=== PATIENT | female | born 1960 | race African-American/Black ===

== ENCOUNTER 2018-06-28 09:45 | Emergency (ER) | payer OTHER ==
--- NOTE | 2018-06-28 11:45 | RAD REPORT ---
EXAM DESCRIPTION: RAD - Chest Single View - 06/28/2018 11:18 am CLINICAL HISTORY: Persistent cough, chest wall pain, shortness of breath COMPARISON: April 2015 TECHNIQUE: AP portable chest image was obtained 1115 hours . FINDINGS: Lungs are clear. Heart and vasculature are normal. No measurable pleural effusion and no p neumothorax. No gross bony abnormality seen. No acute aortic findings suspected. IMPRESSION: No acute cardiopulmonary process. No significant change from comparison.
[2018-06-28 12:08] LABS: Absolute Lymphocytes (CBC) 1.5 K/uL (0.7-4.9); Absolute Monocytes 0.5 K/uL (0.1-1.3); Absolute Neutrophil 1.4 K/uL (1.8-8.0); Basophils % 0.7 % (0-1.3); Eosinophils % 0.8 % (0-4.4); Hematocrit 40.3 % (36.0-45.0); Lymphocytes % 42.5 % (15.3-44.8); MCH 36.4 pg (27.0-35.0); MCV 104.2 fL (80-100); MPV 8.2 fL (7.6-11.3); Monocytes % 14.9 % (3.3-12.3); RBC Red Blood Cell Count 3.86 M/uL (3.86-4.86)
[2018-06-28] MEDS ORDERED: ALBUTEROL 2.5 MG/3 ML NEB SOL ONE (12:19)
[2018-06-28] MEDS ORDERED: IPRATROPIUM BROM 0.5MG/2.5ML ONE (12:19)
[2018-06-28 12:34] LABS: Protime INR 1.03
[2018-06-28 13:30] LABS: BUN Blood Urea Nitrogen 6 mg/dL (7-18); Bicarbonate 31 mmol/L (21-32); CKMB Creatine Kinase MB < 1.0 ng/mL (0.3-3.6); Glucose Level 107 mg/dL (74-106); HDL Cholesterol 115 mg/dL (40-60); LDL Cholesterol, Calculated 23 (<130); NT PRO-BNP 95 pg/mL (<125); Potassium 4.2 mmol/L (3.5-5.1); Sodium Level 144 mmol/L (136-145); Troponin I < 0.02 ng/mL (0.0-0.045)
--- NOTE | 2018-06-28 13:37 | ER ---
Nurse's Notes [facility] Name: Cadence Bailey Age: 57 yrs Sex: Female : 1960 Arrival Date: 06/28/2018 Time: 10:30 Bed 14 Private MD: None, None Diagnosis: Acute bronchitis Presentation: 06/28 10:33 Presenting complaint: Patient states: Non productive cough with chest wall pain that is aj worse with cough for 2 days. Denies fever or nasal congestion. Patient states "I can feel it rattling in my chest but I can't get it to come up.". Transition of care: patient was not received from another setting of care. Onset of symptoms was May 26, 2018. Risk Assessment: Do you want to hurt yourself or someone else? Patient reports no desire to harm self or others. Initial Sepsis Screen: Does the patient meet any 2 criteria? No. Patient's initial sepsis screen is negative. Does the patient have a suspected source of infection? No. Patient's initial sepsis screen is negative. Care prior to arrival: None. 10:33 Method Of Arrival: Ambulatory aj 10:33 Acuity: HALLE 3 aj 10:38 Note Patient observed eating chips in lobby in NAD. aj Triage Assessment: 10:35 General: Appears in no apparent distress. comfortable, Behavior is calm, cooperative, aj appropriate for age. Pain: Complains of pain in chest. Neuro: Level of Consciousness is awake, alert, obeys commands, Oriented to person, place, time, situation, Appropriate for age. Respiratory: Reports shortness of breath cough that is pain with cough Airway is patent Respiratory effort is even, unlabored, Respiratory pattern is regular, symmetrical, Onset: The symptoms/episode began/occurred yesterday, the patient has mild shortness of breath. Derm: Skin is intact, is healthy with good turgor, Skin is pink, warm \\T\\ dry. normal. Historical: - Allergies: 10:35 Iodine; aj - Home Meds: 10:35 None [Active]; aj - PMHx: 10:35 Cancer; Hepatitis; Asthma; aj - PSHx: 10:35 Mastectomy, Left; aj - Immunization history:: Adult Immunizations up to date. - Social history:: Smoking status: Patient uses tobacco products, smokes one-half pack cigarettes per day. - Ebola Screening: : Patient negative for fever greater than or equal to 101.5 degrees Fahrenheit, and additional compatible Ebola Virus Disease symptoms Patient denies exposure to infectious person Patient denies travel to an Ebola-affected area in the 21 days before illness onset No symptoms or risks identified at this time. Screenin:08 Abuse screen: Denies threats or abuse. Denies injuries from another. Nutritional hj screening: No deficits noted. Tuberculosis screening: No symptoms or risk factors identified. Fall Risk None identified. Assessment: 11:08 Pain: Complains of pain in chest. Cardiovascular: Rhythm is regular. Respiratory: hj Airway is patent Respiratory effort is even, unlabored, Respiratory pattern is regular, symmetrical, Breath sounds are clear. 11:30 General: Appears in no apparent distress. uncomfortable, Behavior is calm, cooperative, hj appropriate for age. Neuro: Level of Consciousness is awake, alert, obeys commands, Oriented to person, place, time, situation, Appropriate for age. GI: No signs and/or symptoms were reported involving the gastrointestinal system. : No signs and/or symptoms were reported regarding the genitourinary system. EENT: No signs and/or symptoms were reported regarding the EENT system. Derm: No signs and/or symptoms reported regarding the dermatologic system. Musculoskeletal: No signs and/or symptoms reported regarding the musculoskeletal system. 12:30 Reassessment: Patient and/or family updated on plan of care and expected duration. Pain hj level reassessed. Patient is alert, oriented x 3, equal unlabored respirations, skin warm/dry/pink. Patient states feeling better. 13:15 Reassessment: Patient and/or family updated on plan of care and expected duration. Pain hj level reassessed. Patient is alert, oriented x 3, equal unlabored respirations, skin warm/dry/pink. provider in room for POC:. Vital Signs: 10:35 BP 120 / 58; Pulse 57; Resp 15; Temp 97.8; Pulse Ox 98% on R/A; Weight 63.5 kg; Height aj 5 ft. 7 in. (170.18 cm); 12:30 BP 118 / 56; Pulse 65; Resp 18; Pulse Ox 100% on R/A; hj 13:19 BP 106 / 52; Pulse 65; Resp 18; Pulse Ox 100% on R/A; hj 10:35 Body Mass Index 21.93 (63.50 kg, 170.18 cm) ED Course: 10:30 Patient arrived in ED. mr 10:31 None, None is Private Physician. mr 10:35 Triage completed. aj 10:35 Arm band placed on left wrist. Patient placed in waiting room, Patient notified of wait aj time. EKG completed in triage. Results shown to MD. 11:08 Cornelius John, RN is Primary Nurse. 11:08 Aamir Josue PA is PHCP. [facility] 11:08 Kyle Oconnor MD is Attending Physician. [facility] 11:09 Patient has correct armband on for positive identification. Placed in gown. Bed in low hj position. Call light in reach. Side rails up X 1. Adult w/ patient. 11:45 Initial lab(s) drawn, by me, sent to lab. Inserted saline lock: 22 gauge in right hj antecubital area, using aseptic technique. Blood collected. 13:59 No provider procedures requiring assistance completed. IV discontinued, intact, hj bleeding controlled, No redness/swelling at site. Pressure dressing applied. Administered Medications: 12:11 Drug: DuoNeb (3:1) (2.5 mg - 0.5 mg) 3 ml Route: Nebulizer; hj 13:00 Follow up: Response: No adverse reaction Outcome: 13:37 Discharge ordered by MD. [facility] 13:59 Discharged to home ambulatory, with family. 13:59 Condition: stable 13:59 Discharge instructions given to patient, Instructed on discharge instructions, follow up and referral plans. medication usage, Demonstrated understanding of instructions, follow-up care, medications, Prescriptions given X 1. 14:04 Patient left the ED. Signatures: Allyson Mccloud, RN RN Aamir Josue PA PA jmm Rivera, Maria Payton Shaw RN RN Cornelius John, TERESA RN hj Corrections: (The following items were deleted from the chart) 12: 11:45 Inserted saline lock: 22 gauge in right antecubital area, using aseptic hj technique. Blood collected. : 11:45 Initial lab(s) drawn, by me, sent to lab. [facility]
--- NOTE | 2018-06-28 13:37 | EDPHYS ---
Physician Documentation [facility] Name: Cadence Bailey Age: 57 yrs Sex: Female : 1960 Arrival Date: 06/28/2018 Time: 10:30 Bed 14 Private MD: None, None ED Physician Kyle Oconnor HPI: 06/28 11:26 This 57 yrs old Black Female presents to ER via Ambulatory with complaints of Shortness jmm Of Breath, Cough. 11:26 The patient has shortness of breath at rest. Onset: The symptoms/episode began/occurred jmm gradually, 1 week(s) ago. Duration: The symptoms are continuous. Associated signs and symptoms: Pertinent positives: chest pain, non-productive cough. This is a 57 year old female with a history of breast cancer, asthma, hepatitis that presents to the ED with 1 week of non productive cough and chest pain when turning her neck. Patient denies fever. Patient admits to smoking. Denies fever, denies sore throat. . Historical: - Allergies: 10:35 Iodine; aj - Home Meds: 10:35 None [Active]; aj - PMHx: 10:35 Cancer; Hepatitis; Asthma; aj - PSHx: 10:35 Mastectomy, Left; aj - Immunization history:: Adult Immunizations up to date. - Social history:: Smoking status: Patient uses tobacco products, smokes one-half pack cigarettes per day. - Ebola Screening: : Patient negative for fever greater than or equal to 101.5 degrees Fahrenheit, and additional compatible Ebola Virus Disease symptoms Patient denies exposure to infectious person Patient denies travel to an Ebola-affected area in the 21 days before illness onset No symptoms or risks identified at this time. ROS: 13:32 Eyes: Negative for injury, pain, redness, and discharge. jmm 13:32 Abdomen/GI: Negative for abdominal pain, nausea, vomiting, diarrhea, and constipation, Back: Negative for injury and pain, MS/Extremity: Negative for injury and deformity, Skin: Negative for injury, rash, and discoloration, Neuro: Negative for headache, weakness, numbness, tingling, and seizure. 13:32 Constitutional: Positive for malaise. 13:32 ENT: Positive for 13:32 Cardiovascular: Positive for chest pain. 13:32 Respiratory: Positive for cough, shortness of breath. 13:32 All other systems are negative. Exam: 13:32 Head/Face: atraumatic. Chest/axilla: Normal chest wall appearance and motion. [facility] 13:32 Constitutional: The patient appears in no acute distress, alert, awake. 13:32 Cardiovascular: Rate: normal, Rhythm: regular, Pulses: no pulse deficits are appreciated. 13:32 ECG was reviewed by the Attending Physician. 13:32 Respiratory: the patient does not display signs of respiratory distress, Respirations: normal, Breath sounds: are clear throughout. 13:32 Abdomen/GI: Inspection: abdomen appears normal. 13:32 Musculoskeletal/extremity: ROM: intact in all extremities. 13:32 Skin: Appearance: Color: normal in color. 13:32 Neuro: Orientation: is normal, Mentation: is normal, Memory: is normal. 13:32 Psych: Behavior/mood is pleasant, cooperative. Vital Signs: 10:35 BP 120 / 58; Pulse 57; Resp 15; Temp 97.8; Pulse Ox 98% on R/A; Weight 63.5 kg; Height aj 5 ft. 7 in. (170.18 cm); 12:30 BP 118 / 56; Pulse 65; Resp 18; Pulse Ox 100% on R/A; hj 13:19 BP 106 / 52; Pulse 65; Resp 18; Pulse Ox 100% on R/A; hj 10:35 Body Mass Index 21.93 (63.50 kg, 170.18 cm) aj MDM: 11:23 Patient medically screened. [facility] 13:32 Differential diagnosis: asthma, Bronchitis Chronic Obstructive Pulmonary Disease [facility] Myocardial Infarction pneumonia, Pneumothorax Pulmonary Embolism. The patient's pulmonary embolism risk score was calculated as follows: No Risks (0 Pts). Data reviewed: vital signs, nurses notes. Counseling: I had a detailed discussion with the patient and/or guardian regarding: the historical points, exam findings, and any diagnostic results supporting the discharge/admit diagnosis, lab results, radiology results, the need for outpatient follow up, to return to the emergency department if symptoms worsen or persist or if there are any questions or concerns that arise at home. Response to treatment: the patient's symptoms have markedly improved after treatment. ED course: HEART SCORE = 2. 06/28 12:10 Order name: CBC with Automated Diff; Complete Time: 12:10 EDMS 06/28 12:35 Order name: Protime (+INR); Complete Time: 12:37 [facility] 06/28 12:35 Order name: PTT, Activated Partial Thromb; Complete Time: 12:37 [facility] 06/28 12:35 Order name: D-Dimer; Complete Time: 12:37 [facility] 06/28 13:30 Order name: Basic Metabolic Panel; Complete Time: 13:31 [facility] 06/28 13:30 Order name: CKMB Creatine Kinase MB; Complete Time: 13:31 [facility] 06/28 13:30 Order name: Troponin I; Complete Time: 13:31 [facility] 06/28 13:30 Order name: NT PRO-BNP; Complete Time: 13:31 [facility] 06/28 13:30 Order name: Lipid Profile; Complete Time: 13:31 [facility] 06/28 13:30 Order name: Magnesium; Complete Time: 13:31 [facility] 06/28 10:37 Order name: Chest Pa And Lat (2 Views) XRAY 06/28 10:37 Order name: EKG - Nurse/Tech; Complete Time: 10:37 06/28 11:26 Order name: EKG; Complete Time: 13:33 [facility] 06/28 11:26 Order name: Cardiac monitoring; Complete Time: 11:35 [facility] 06/28 11:26 Order name: IV Saline Lock; Complete Time: 12:11 [facility] 06/28 11:26 Order name: Labs collected and sent; Complete Time: 12:11 [facility] 06/28 11:26 Order name: O2 Per Protocol; Complete Time: 11:35 [facility] 06/28 11:26 Order name: O2 Sat Monitoring; Complete Time: 11:35 [facility] 06/28 12:13 Order name: RAD; Complete Time: 12:15 [facility] 06/28 13:55 Order name: EKG Electrocardiogram EDCO EC:32 Rate is 55 beats/min. Rhythm is regular. QRS [place] is Normal. [place] interval is normal. QRS jmm interval is normal. QT interval is normal. No ST changes noted. Reviewed by me. Administered Medications: 12:11 Drug: DuoNeb (3:1) (2.5 mg - 0.5 mg) 3 ml Route: Nebulizer; 13:00 Follow up: Response: No adverse reaction Disposition: 06/28/18 13:37 Discharged to Home. Impression: Acute bronchitis. - Condition is Stable. - Discharge Instructions: Acute Bronchitis, Adult. - Prescriptions for Prednisone 20 mg Oral Tablet - take 3 tablet by ORAL route once daily for 5 days; 15 tablet. Zithromax Z- Sung 250 mg Oral Tablet - take 1 tablet by ORAL route as directed for 5 days Day 1 - take two (2) tablets one time. Day 2, 3, 4 , 5 take one (1) tablet once daily.; 6 tablet. Albuterol Sulfate 90 mcg/actuation - inhale 1-2 puff by INHALATION route every 4-6 hours; 1 Inhaler. - Medication Reconciliation Form, Thank You Letter, Antibiotic Education, Prescription Opioid Use form. - Follow up: Private Physician; When: 2 - 3 days; Reason: Recheck today's complaints, Continuance of care, Re-evaluation by your physician. Addendum: 07/01/2018 07:03 Co-signature as Attending Physician, Kyle Oconnor MD I agree with the assessment and c booth plan of care. Signatures: Dispatcher [employer] EDAllyson Hays, RN Kyle Sargent MD MD cha Mickail, Joel, PA PA Cornelius Hussein RN RN hj Corrections: (The following items were deleted from the chart) 06/28 14:04 13:37 06/28/2018 13:37 Discharged to Home. Impression: Acute bronchitis. Condition is hj Stable. Forms are Medication Reconciliation Form, Thank You Letter, Antibiotic Education, Prescription Opioid Use. Follow up: Private Physician; When: 2 - 3 days; Reason: Recheck today's complaints, Continuance of care, Re-evaluation by your physician. mishel
--- NOTE | 2018-06-29 12:13 | EKG ---
Test Date: 2018-06-28 Test Time: 10:38:23 Supervisor Extrusion: LOIS MEASUREMENT RESULTS: Intervals: Rate: 55 [place]: 158 QRSD: 84 QT: 456 QTc: 436 [place]: P: 74 [place]: 158 QRS: 64 T: 44 INTERPRETIVE STATEMENTS: Sinus bradycardia Moderate voltage criteria for LVH, may be normal variant T wave abnormality, consider anterior ischemia Abnormal ECG Compared to ECG 05/06/2015 08:54:17 Left ventricular hypertrophy now present T-wave abnormality now present Possible ischemia now present Electronically Signed On 06-29-18 12:07:59 CDT by Adam Thomson
== END 2018-06-28 14:04 | disposition home or self-care (01) ==
LOC: ER 09:45
DX: J20.9 Acute bronchitis, unspecified (principal); F17.210 Nicotine dependence, cigarettes, uncomplicated; Z85.3 Personal history of malignant neoplasm of breast; Z91.048 Other nonmedicinal substance allergy status; Z90.12 Acquired absence of left breast and nipple
CPT/HCPCS: 36415; 71045; 80048; 80061; 82553; 83735; 83880; 84484; 85025; 85379; 85610; 85730; 93005; 94640; 99284

== ENCOUNTER 2019-12-22 12:23 | Emergency (ER) | payer OTHER ==
--- NOTE | 2019-12-22 14:02 | RAD REPORT ---
EXAM DESCRIPTION: RAD - Chest Single View - 12/22/2019 1:53 pm CLINICAL HISTORY: fall 5 days ago, pain to sternum Chest pain. COMPARISON: Chest Single View dated 06/28/2018; CHEST SINGLE VIEW dated 05/06/2015; Thorax Wo Con date d 12/22/2019 FINDINGS: Portable technique limits examination quality. Vague poorly defined areas of nodularity seen in both lung apices. The lungs are otherwise clear. The heart is mildly enlarged in size. No displaced fractures. IMPRESSION: No acute intrathoracic process suspected.
[2019-12-22] MEDS ORDERED: MEPERIDINE HCL 25 MG/0.5 ML ONE (14:06)
--- NOTE | 2019-12-22 14:27 | RAD REPORT ---
EXAM DESCRIPTION: CT - Thorax Wo Con CLINICAL HISTORY: Chest pain fall, sternal injury and pain COMPARISON: THORAX WO CONTRAST dated 05/06/2015 FINDINGS: Areas of nodularity are lung noted in both lung apices, largest on the right measuring 18 mm. These areas of nodularity are new since [address] chest. The lungs are otherwise clear. No pleural thickening or pleural effusion. No pneumothorax. No axillary, mediastinal or hilar adenopathy. Nondisplaced fractures seen the inferior body of the sternum. No rib fracture. No gross upper abdomin al finding. All CT scans are performed using dose optimization technique as appropriate and may include automated exposure control or mA/KV adjustment according to patient size. IMPRESSION: Nondisplaced transverse fracture inferior body of the sternum. Areas of nodularity in both lung apices abutting the pleura. Recommend followup surveillance CT chest study in 6 months.
[2019-12-22 14:47] LABS: BUN Blood Urea Nitrogen 11 mg/dL (7-18); Bicarbonate 31 mmol/L (21-32); Glucose Level 105 mg/dL (74-106); Potassium 4.6 mmol/L (3.5-5.1); Sodium Level 141 mmol/L (136-145); Troponin (Emerg Dept Use Only) < 0.02 ng/mL (0.0-0.045)
[2019-12-22 14:48] LABS: Basophils % 0.9 % (0-1.3); Hematocrit 39.2 % (36.0-45.0); Lymphocytes % 52.2 % (15.3-44.8); MPV 8.8 fL (7.6-11.3)
[2019-12-22 14:52] LABS: Protime INR 1.06
--- NOTE | 2019-12-22 15:13 | ER ---
Nurse's Notes [facility] Name: Cadence Bailey Age: 59 yrs Sex: Female : 1960 Arrival Date: 12/22/2019 Time: 12:25 Bed 6 Private MD: Diagnosis: Unspecified fracture of sternum Presentation: 12/21 12:44 Chief complaint: Patient states: Fell 5 days ago and did not have any pain at that ss time, but the next day and days after patient began experiencing pain to her sternum. Coronavirus screen: The patient has NOT traveled to a country currently being monitored by the [facility] within the last 14 days. Proceed with normal triage procedures. Ebola Screen: Patient denies exposure to infectious person. Patient denies travel to an Ebola-affected area in the 21 days before illness onset. Initial Sepsis Screen: Does the patient meet any 2 criteria? No. Patient's initial sepsis screen is negative. Does the patient have a suspected source of infection? No. Patient's initial sepsis screen is negative. Risk Assessment: Do you want to hurt yourself or someone else? Patient reports no desire to harm self or others. 12:44 Method Of Arrival: Ambulatory 12:44 Acuity: HALLE 3 ss Historical: - Allergies: 12:46 Iodine; ss - PMHx: 12:46 Asthma; Cancer; Hepatitis; ss - PSHx: 12:46 Mastectomy, Left; ss - Immunization history:: Adult Immunizations up to date. - Social history:: Smoking status: Patient denies any tobacco usage or history of. - Family history:: not pertinent. - Hospitalizations: : No recent hospitalization is reported. Screenin:00 Abuse screen: Denies threats or abuse. Nutritional screening: No deficits noted. em Tuberculosis screening: No symptoms or risk factors identified. Fall Risk None identified. Vital Signs: 12:44 BP 138 / 73; Pulse 47; Resp 18; Temp 97.8(TE); Pulse Ox 99% on R/A; Weight 64.86 kg; ss Height 5 ft. 7 in. (170.18 cm); Pain 10/10; 12:44 Body Mass Index 22.40 (64.86 kg, 170.18 cm) ED Course: 12:25 Patient arrived in ED. rg4 12:46 Triage completed. ss 12:46 Arm band placed on right wrist. ss 13:24 Jaime Gomes MD is Attending Physician. rn 13:28 Rajat Rausch, RN is Primary Nurse. em 14:00 Patient has correct armband on for positive identification. Placed in gown. Bed in low em position. Call light in reach. Side rails up X2. Pulse ox on. NIBP on. 14:10 Initial lab(s) drawn, by me, sent to lab. Inserted saline lock: 22 gauge in right em forearm, using aseptic technique. Blood collected. 14:31 CT Chest Wo Con In Process Unspecified. EDMS 15:32 No provider procedures requiring assistance completed. IV discontinued, intact, em bleeding controlled, No redness/swelling at site. Pressure dressing applied. Administered Medications: 14:12 Drug: Demerol 25 mg Route: IVP; Site: right forearm; em Outcome: 15:13 Discharge ordered by MD. rn 15:32 Discharged to home ambulatory. em 15:32 Condition: good 15:32 Discharge instructions given to patient, Instructed on discharge instructions, follow up and referral plans. medication usage, Demonstrated understanding of instructions, follow-up care, medications, Prescriptions given X 2. 15:33 Patient left the ED. em Signatures: Dispatcher [employer] Rajat Oliveira, RN RN Jaime Gomes MD MD rn Smirch, Shelby, RN RN Amada Lewis rg4
--- NOTE | 2019-12-22 15:13 | EDPHYS ---
Physician Documentation [facility] Name: Cadence Bailey Age: 59 yrs Sex: Female : 1960 Arrival Date: 12/22/2019 Time: 12:25 Bed 6 Private MD: ED Physician Jaime Gomes HPI: 12/21 13:41 This 59 yrs old Black Female presents to ER via Ambulatory with complaints of Chest rn Pain From Fall. 13:41 The patient or guardian reports chest pain that is located primarily in the anterior rn chest wall. Onset: The symptoms/episode began/occurred 5 day(s) ago. 13:42 The pain does not radiate. The chest pain is described as sharp, stabbing. Duration: rn The patient or guardian reports multiple episodes, that are intermittent. Modifying factors: The symptoms are alleviated by nothing. the symptoms are aggravated by deep breath, palpation of area. Severity of pain: At its worst the pain was moderate in the emergency department the pain is unchanged. The patient has not experienced similar symptoms in the past. Reports fall from standing 5 days ago, hit chest on curb, reports didn't hurt much after it happened but worse with time, worse with palpation and deep breath. No hemoptysis. . Historical: - Allergies: 12:46 Iodine; ss - PMHx: 12:46 Asthma; Cancer; Hepatitis; ss - PSHx: 12:46 Mastectomy, Left; ss - Immunization history:: Adult Immunizations up to date. - Social history:: Smoking status: Patient denies any tobacco usage or history of. - Family history:: not pertinent. - Hospitalizations: : No recent hospitalization is reported. ROS: 13:48 Constitutional: Negative for fever, chills, and weight loss, Eyes: Negative for injury, rn pain, redness, and discharge, Neck: Negative for injury, pain, and swelling, Cardiovascular: Negative for palpitations, and edema, Respiratory: Negative for shortness of breath, cough, wheezing, + pleuritic chest pain Abdomen/GI: Negative for abdominal pain, nausea, vomiting, diarrhea, and constipation, MS/Extremity: Negative for injury and deformity, Skin: Negative for injury, rash, and discoloration, Neuro: Negative for headache, weakness, numbness, tingling, and seizure. Exam: 13:48 Constitutional: This is a well developed, well nourished patient who is awake, alert, rn and in no acute distress. Head/Face: Normocephalic, atraumatic. Chest/axilla: + tender costochondral junction bilaterally and sternum Cardiovascular: Bradycardic, regular. No pulse deficits. Respiratory: Lungs have equal breath sounds bilaterally, clear to auscultation. No increased work of breathing, no retractions or nasal flaring. Abdomen/GI: soft, non-tender MS/ Extremity: Pulses equal, no cyanosis. Neurovascular intact. Full, normal range of motion. Equal circumference. Neuro: Awake and alert, GCS 15, oriented to person, place, time, and situation. Cranial nerves II-XII grossly intact. Motor strength 5/5 in all extremities. Sensory grossly intact. Cerebellar exam normal. Normal gait. Vital Signs: 12:44 BP 138 / 73; Pulse 47; Resp 18; Temp 97.8(TE); Pulse Ox 99% on R/A; Weight 64.86 kg; ss Height 5 ft. 7 in. (170.18 cm); Pain 10/10; 12:44 Body Mass Index 22.40 (64.86 kg, 170.18 cm) ss MDM: 13:24 Patient medically screened. rn 15:11 Differential diagnosis: Blunt Chest Trauma Chest Wall Contusion Chest Wall Injury rn Pneumothorax Pulmonary Contusion Rib Fracture. Data reviewed: vital signs, nurses notes, lab test result(s), EKG, radiologic studies, CT scan, plain films, and as a result, I will discharge patient. Counseling: I had a detailed discussion with the patient and/or guardian regarding: the historical points, exam findings, and any diagnostic results supporting the discharge/admit diagnosis, lab results, radiology results, the need for outpatient follow up, to return to the emergency department if symptoms worsen or persist or if there are any questions or concerns that arise at home. Response to treatment: the patient's symptoms have mildly improved after treatment, and as a result, I will discharge patient. Special discussion: I discussed with the patient/guardian in detail that at this point there is no indication for admission to the hospital. It is understood, however, that if the symptoms persist or worsen the patient needs to return immediately for re-evaluation. ED course: + non-displaced isolated inferior sternal fracture, no other thoracic traumatic findings, no change in ECG compared to ECg in 2018, neg troponin. Will dc home with pain meds and cough medication to minimize pain.. 12/21 13:41 Order name: CBC with Diff; Complete Time: 15:04 rn 12/21 13:41 Order name: Basic Metabolic Panel; Complete Time: 15:04 rn 12/21 13:07 Order name: XRAY Chest (1 view) ss 12/21 13:41 Order name: Protime (+inr); Complete Time: 15:04 rn 12/21 13:41 Order name: Ptt, Activated; Complete Time: 15:04 rn 12/21 13:42 Order name: Troponin (emerg Dept Use Only); Complete Time: 15:04 rn 12/21 13:41 Order name: CT Chest Wo Con; Complete Time: 07:07 rn 12/21 13:41 Order name: IV Start; Complete Time: 14:22 rn 12/21 13:42 Order name: EKG; Complete Time: 13:42 rn 12/21 13:42 Order name: EKG - Nurse/Tech; Complete Time: 14:22 rn 12/21 15:30 Order name: RAD; Complete Time: 07:07 EDMS Administered Medications: 14:12 Drug: Demerol 25 mg Route: IVP; Site: right forearm; em Disposition: 12/22/19 15:13 Discharged to Home. Impression: Unspecified fracture of sternum. - Condition is Stable. - Discharge Instructions: Sternal Fracture. - Prescriptions for Tylenol- Codeine #3 300-30 mg Oral Tablet - take 1 tablet by ORAL route every 6 hours As needed; 20 tablet. Guaifenesin AC 10- 100 mg/5 mL Oral Liquid - take 10 milliliter by ORAL route every 4 hours As needed; 240 milliliter. - Medication Reconciliation Form, Thank You Letter, Antibiotic Education, Prescription Opioid Use form. - Follow up: Private Physician; When: As needed; Reason: Recheck today's complaints, Re-evaluation by your physician. - Problem is new. - Symptoms have improved. Signatures: Dispatcher [employer] EDRajat Silver RN RN Jaime Butcher MD MD rn Smirch, Shelby, RN RN ss Corrections: (The following items were deleted from the chart) 15:33 15:13 12/22/2019 15:13 Discharged to Home. Impression: Unspecified fracture of sternum. em Condition is Stable. Forms are Medication Reconciliation Form, Thank You Letter, Antibiotic Education, Prescription Opioid Use. Follow up: Private Physician; When: As needed; Reason: Recheck today's complaints, Re-evaluation by your physician. Problem is new. Symptoms have improved. rn
[2019-12-22 15:40] VITALS: BP 138/73; TEMP 97.8; O2SAT 99
--- NOTE | 2019-12-23 08:53 | EKG ---
Test Date: 2019-12-22 Test Time: 13:22:38 Professional Services Specialist: LIGIA MEASUREMENT RESULTS: Intervals: Rate: 45 NH: 168 QRSD: 80 QT: 464 QTc: 401 [place]: P: 75 NH: 168 QRS: 36 T: 35 INTERPRETIVE STATEMENTS: Marked sinus bradycardia T wave abnormality, consider anterior ischemia Abnormal ECG Compared to ECG 06/28/2018 10:38:23 Left ventricular hypertrophy no longer present T-wave abnormality still present Possible ischemia still present Electronically Signed On 12-23-19 08:52:55 CDT by Adam Thomson
== END 2019-12-22 15:33 | disposition home or self-care (01) ==
LOC: ER 12:23
DX: S22.20XA Unspecified fracture of sternum, initial encounter for closed fracture (principal); W01.198A Fall on same level from slipping, tripping and stumbling with subsequent striking against other object, initial encounter; Y93.9 Activity, unspecified; Y92.89 Other specified places as the place of occurrence of the external cause; Z91.09 Other allergy status, other than to drugs and biological substances
CPT/HCPCS: 93005; 85025; 80048; 36415; 85610; 85730; 84484; 71250; 71045; 96374; 99284; J2175

== ENCOUNTER 2022-11-29 13:06 | Emergency (ER) | payer OTHER ==
--- OUTSIDE RECORDS SUMMARY | 2022-11-29 13:08 | XMS REPORT | Continuity of Care Document ---
:1960 Author Organization [facility] t Address [address] [place] [address] Care Team Providers Name Role Phone RigoleoncioMagdaleno Hinton Attending Clinician Payers Payer Name Policy Type Policy Number Effective Date Expiration Date S ource Problems Condition Condition Condition Status Onset Resolution Last Treating Co mments Source Name Details Category Date Date Treatment Clinician Date Pneumonia Pneumonia Disease Active Uni vers 10-25 ity of 00:00: [address] Allergies, Adverse Reactions, Alerts Allergy Allergy Status Severity Reaction(s) Onset Inactive Treating Comm ents Source Name Type Date Date Clinician Tramadol Propensi Active Nausea Univer s ty to and/or 05-05 ity of adverse Vomiting 00:00: [place] reaction [facility] TRAMADOL DRUG Active N/V Univers INGREDI - ity of 00:00: [place] [address] [place] [address] Iodine Propensi Active Hives Univers ty to 5-08 ity of adverse 00:00: [place] reaction 00 [facility] IODINE DRUG Active Hives 0 Univers INGREDI 5-08 ity of 00:00: [place] 00 [facility] Social History Social Habit Start Date Stop Date Quantity Comments Source History of tobacco Cigarette Smoker University of use [facility] [place] [place] Exposure to Not sure University of SARS-CoV-2 (event) [facility] [place] Cigarettes smoked 2016-10-25 2016-10-25 Univers ity of current (pack per 00:00:00 00:00:00 ) - Reported Branch Cigarette 2016-10-25 2016-10-25 University of pack-years 00:00:00 00:00:[address] [facility] [place] Alcohol intake 2016-10-25 2016-10-25 University of 00:00:00 00:00:[address] [facility] [place] [place] Sex Ass[birth year] At [birth year] Universit y of 00:00:00 00:00:[address] [facility] Smoking Status Start Date Stop Date Source Current every day smoker 2016-10-25 00:00:[address] [facility] [place] [place] Medications Ordered Filled Start Stop Current Ordering Indication Dosage Frequency Signature Comments Components Source Medication Medication Date Date Medication? Clinician (SIG) Name Name albuterol 2020- No 6{puff} 6 Puff, U nivers (VENTOLIN) 06-05 Inhalation it y of inhaler 6 21:15: 20[place]20 [place] :[place] dose, [facility] 06/05/21 at [place] [address], MARGARITA benzonatate 2020- No 100mg 100 mg, U nivers (TESSALON 06-05 Oral, ity of PERLES) 21:15: 20:16 ONCE, 1 [place] capsule 100 00 :00 dose, [facility] mg 06/05/21 at [place] [address], Routine ondansetron No 4mg 4 mg, Slow Univers (ZOFRAN 06-05 IV Push, ity of (PF)) 21:15: 20:16 ONCE, 1 [place] injection 4 00 :00 dose, [facility] mg 06/05/21 at [place] [address], MARGARITA morpHINE 2020- No 4mg 4 mg, Slow Un cash injection 4 06-05 IV Push, ity of mg 21:15: 20:16 ONCE, 1 [place] 00 :00 dose, [facility] 06/05/21 at [place] [address], STAT albuterol Yes [id number] 6{puff} Inhale 6 Univers 90 8-22 Puffs ity of mcg/actuati 00:00: every 4 Low as on inhaler 00 (four) Medical hours as Branch needed for Wheezing or Shortness of Breath. benzonatate Yes [id number] 100mg Take 1 Univers 100 mg 8- capsule by ity of capsule 00:00: mouth 3 [place] 00 (three) Medical times Branch daily as needed for Cough. dicyclomine 202- No [id number] 20mg Take 1 Univers 20 mg 8-22 08-30 tablet by ity of tablet 00:00: 04:59 mouth 4 [place] 00 :00 (four) Medical times Branch daily for 7 days. acetaminoph 2016- Yes 1{tbl} Take 1 Un cash en-codeine 1-29 tablet by ity of (TYLENOL-CO 00:00: mouth [place] DEINE #3) 00 every 4 Medical 300-30 mg (four) Branch tablet hours as needed for Pain (scale 7-10). ondansetron 2016- Yes 4mg Take 1 Univ ers 4 mg 1-29 tablet by ity of disintegrat 00:00: mouth [place] ing tablet 00 every 8 Medica l (eight) Branch hours as needed for Nausea and Vomiting (N/V). cyclobenzap 2016- Yes 5mg Take 1 Univ ers rine 5 mg 3-13 tablet by ity o f tablet 00:00: mouth 3 [place] 00 (three) Medical times Branch daily. guaiFENesin 2016- Yes 200mg Take 10 mL Univers 100 mg/5 mL 1-14 by mouth ity of solution 00:00: every 6 [place] 00 (six) Medical hours as Branch needed for Cough. predniSONE 2016- Yes 20mg Take 1 Unive rs 20 mg 1-14 tablet by ity of tablet 00:00: mouth [place] 00 daily. Medical Branch levoFLOXaci 2016- Yes 500mg Take 1 Uni vers n 500 mg 1-14 tablet by ity of tablet 00:00: mouth [place] 00 every 24 Medical (twenty-fo Branch ur) hours. Vital Signs Vital Name Observation Time Observation Value Comments Source Systolic blood 2021-06-05 21:00:00 135 mm[Hg] Univer sity of pressure [facility] [place] Diastolic blood 2021-06-05 21:00:00 75 mm[Hg] Unive rsity of [facility] Heart rate 2021-06-05 21:00:00 49 /min [facility] Respiratory rate 2021-06-05 21:00:00 18 /min [facility] Oxygen saturation in 2021-06-05 21:00:00 100 /min [facility] Arterial blood by [facility] Pulse oximetry Branch Body temperature 2021-06-05 17:54:00 37.22 Jannet [facility] Body weight 2021-06-05 17:54:00 71.215 kg [facility] BMI 2021-06-05 17:54:00 24.59 kg/m2 [facility] Procedures Procedure Date / Time Performed Performing Clinician Sourkhoi e XR CHEST 1 VW 2021-06-05 20:45:08 Magdaleno Fagan [facility] CT ABDOMEN PELVIS WO 2021-06-05 20:35:45 Magdaleno Fagan Uni [facility] CONTRAST [facility] COVID-19 (ID NOW RAPID 2021-06-05 20:17:00 [facility] Medical Branch LIPASE 2021-06-05 19:20:00 Erica Fuentes [facility] COMP. METABOLIC PANEL 2021-06-05 19:20:00 Erica Fuentes [facility] ([id number]) [facility] CBC WITH DIFF 2021-06-05 19:20:00 Erica Fuentes [facility] URINALYSIS 2021-06-05 19:20:00 Erica Fuentes [facility] Encounters Start End Encounter Admission Attending Care Care Encounter Source Date/Time Date/Time Type Type Clinicians Facility Department ID 2021-06-05 2021-06-05 Emergency Gracia [facility] [id number] Univers 12:56:00 17:14:00 Magdaleno [facility] [place] [id number] [facility] [id number] [facility] [id number] [facility] 084 Branch 2021-06-05 2021-06-05 Emergency X [facility] ERT [id number] Univers 12:48:00 12:48:00 [facility] Results Test Description Test Time Test Comments Results Result Comments Source COVID-19 (ID NOW RAPID TESTING) 2021-06-05 20:40:09 Test Item Value Reference Range Interpretation Comme nts SARS-CoV-2 Rapid ID NOW (test code Not Detected Not Detected = 63098-6) BRODERICK (test code = BRODERICK) ID NOW COVID-19 Assay is an isothermal nucleic acid amplification test intended for the qualitative detection of nucleic acid from SARS-CoV-2 viral RNA in nasopharyngeal (FLORAL ASSISTANT) specimens. It is used under Emergency Use Authorization (EUA) by FDA. The limit of detection (LOD) of the assay is 125 Genome Equivalents/mL. A positive result is indicative of the presence of SARS-CoV-2 RNA. ?Clinical correlation with patient history and other diagnostic information is necessary to determine patient infection status. A negative (Not Detected) result does not preclude SARS-CoV-2 infection. In patients with clinical symptoms and other tests that are consistent with SARS-CoV-2 infection, negative results should be treated as presumptive negative and a new specimen should be tested with alternative PCR molecular test. Invalid: Please collect a new specimen for repeat patient testing if clinically indicated. Lab Interpretation (test code = Normal 29586-8) [facility] with [id number] 20:13:45 Test Item Value Reference Range Interpretation Comments WBC (test code = See_Comment L [Automated 1090-2) message] The sy stem which generated this result transmitted reference range : 4.30 - 11.10 10*3/?L. The reference range was not used to interpret this result as normal/abnormal . RBC (test code = See_Comment [Automated 789-8) message] The sy stem which generated this result transmitted reference range : 3.93 - 5.25 10*6/?L. The reference range was not used to interpret this result as normal/abnormal . HGB (test code = 13.7 g/dL 11.6-15.0 718-7) HCT (test code = 38.6 % 35.7-45.2 4544-3) MCV (test code = 98.0 fL 80.6-95.5 H 787-2) MCH (test code = 34.8 pg 25.9-32.8 H 785-6) MCHC (test code = 35.5 g/dL 31.6-35.1 H 786-4) RDW-SD (test code = 43.9 fL 39.0-49.9 16435-4) RDW-CV (test code = 12.1 % 12.0-15.5 788-0) PLT (test code = See_Comment L [Automated 777-3) message] The sy stem which generated this result transmitted reference range : 166 - 358 10*3/ ?L. The reference r jennifer was not used to interpret this result as normal/abnormal . MPV (test code = 10.2 fL 9.5-12.9 04978-3) NRBC/100 WBC (test See_Comment [Automat ed code = 9373623389) message] The system which generated this result transmitted reference range : 0.0 - 10.0 /100 WBCs. The refer ence range was not u sed to interpret th is result as normal/abnormal . NRBC x10^3 (test code <0.01 See_Comment [Auto mated = 5043258209) message] The s ystem which generated this result transmitted reference range : 10*3/?L. The reference range was not used to interpret this result as normal/abnormal . GRAN MAT (NEUT) % 31.0 % (test code = 770-8) IMM GRAN % (test code 0.30 % = 1304940112) LYMPH % (test code = 52.1 % 736-9) MONO % (test code = 14.7 % 5905-5) EOS % (test code = 1.3 % 713-8) BASO % (test code = 0.6 % 706-2) GRAN MAT x10^3(ANC) 0.97 10*3/uL 1.88-7.09 L (test code = 1245428721) IMM GRAN x10^3 (test <0.03 0.00-0.06 code = 5053144782) LYMPH x10^3 (test code 1.63 10*3/uL 1.32-3.29 = 731-0) MONO x10^3 (test code 0.46 10*3/uL 0.33-0.92 = 742-7) EOS x10^3 (test code = 0.04 10*3/uL 0.03-0.39 711-2) BASO x10^3 (test code <0.03 0.01-0.07 = 704-7) Lab Interpretation Abnormal (test code = 58234-1) [facility] [id number] 19:47:48 Test Item Value Reference Range Interpretation Comments NA (test code = 137 mmol/L 135-145 3952843023) K (test code = 4.6 mmol/L 3.5-5.0 6895591482) CL (test code = 104 mmol/L 98-108 2979217224) CO2 TOTAL (test code = 30 mmol/L 23-31 8320478927) AGAP (test code = 2-16 8610929631) BUN (test code = 13 mg/dL 7-23 4058291325) GLUCOSE (test code = 99 mg/dL 70-110 1558064976) CREATININE (test code = 0.64 mg/dL 0.50-1.04 9390208746) TOTAL BILI (test code = 0.5 mg/dL 0.1-1.5 6093600926) CALCIUM (test code = 9.8 mg/dL 8.6-10.6 5617896533) T PROTEIN (test code = 7.8 g/dL 6.3-8.2 2071795257) ALBUMIN (test code = 4.3 g/dL 3.5-5.0 3208649795) ALK PHOS (test code = 61 U/L 34-122 9036893805) ALTv (test code = 75 U/L 5-35 H 1742-6) AST(SGOT) (test code = 115 U/L 13-40 H 5670105851) eGFR (test code = mL/min/1.73m2 4524538776) BRODERICK (test code = BRODERICK) Association of Glomerular Filtration Rate (GFR) and Staging of Kidney Disease* + --+ --+ ------+| GFR (mL/min/1.73 m2) ?| With Kidney Damage ?| ?Without Kidney Damage+ --------+ --------+ +| ?>90 ?| ?Stage one ?| ? Normal ?+ ---+ ---+ -------+| ?60-89 ?| ?Stage two ?| ? Decreased GFR ? + --+ --+ ------+| ?30-59 ?| ?Stage three ?| ? Stage three ? + --+ --+ ------+| ?15-29 ?| ?Stage four ? | ? Stage four ?+ ---+ ---+ -------+| ?<15 (or dialysis) ? ?| ?Stage five ? | ? Stage five ?+ ---+ ---+ -------+ *Each stage assumes the associated GFR level has been in effect for at least three months. ?Stages 1 to 5, with or without kidney disease, indicate chronic kidney disease. Notes: Determination of stages one and two (with eGFR >59mL/min/1.73 m2) requires estimation of kidney damage for at least three months as defined by structural or functional abnormalities of the kidney, manifested by either:Pathological abnormalities or Markers of kidney damage (including abnormalities in the composition of the blood or urine or abnormalities in imaging tests). Lab Interpretation Abnormal (test code = 78966-0) [facility], [id number] 19:47:08 Test Item Value Reference Range Interpretation Comments LIPASE (test code = 5152346738) 221 U/L 0-220 H Lab Interpretation (test code = Abnormal 16297-8) [facility]inalysis2021-08-22 19:45:52 Test Item Value Reference Range Interpretation Comments APPEARANCE (test code = Clear Clear 5323490643) COLOR (test code = Yellow Yellow 6769559931) PH (test code = 4.8-8.0 7450627693) SP GRAVITY (test code = 1.003-1.030 7492874674) GLU U QUAL (test code = Normal Normal 2749172268) BLOOD (test code = Negative Negative 9073000326) KETONES (test code = Negative Negative 0280102984) PROTEIN (test code = Negative Negative 2887-8) UROBILIN (test code = Normal Normal 6101484649) BILIRUBIN (test code = Negative Negative 9150545423) NITRITE (test code = Negative Negative 6719963386) LEUK JOSE L (test code = 25/uL Negative A 8736195870) RBC/HPF (test code = See_Comment [Autom ated message] 4600098808) The system [employer] generated this result transmitted ref erence range: 0 - 3 HP F. The reference range was not used to int erpret this result as normal/abnormal . WBC/HPF (test code = See_Comment [Autom ated message] 1737967547) The system [employer] generated this result transmitted ref erence range: 0 - 5 HP F. The reference range was not used to int erpret this result as normal/abnormal . BACTERIA (test code = Negative Negative 1313386957) SQ EPITH (test code = <1 HPF 6462758901) Lab Interpretation (test Abnormal code = 80326-2) [facility]"
--- NOTE | 2022-11-29 15:54 | RAD REPORT ---
EXAM DESCRIPTION: RAD - Chest Single View - 11/29/2022 3:26 pm CLINICAL HISTORY: DYSPNEA COMPARISON: Chest Single View dated 12/22/2019; Chest Single View dated 06/28/2018; CHEST SINGLE VIEW d ated 05/06/2015 FINDINGS: Lines: None. Lungs: Patchy bilateral airspace disease, worse on the right. Pleural: No significant pleural effusions or pneumothorax. Cardiac: The heart size is within normal limits. Mediastinum: Within normal limits. Bones: No acute fractures. Other: None IMPRESSION: Faint bilateral airspace disease concerning for a multifocal pneumonia, possibly a viral etiology.
[2022-11-29 16:06] LABS: Protime INR 1.05
[2022-11-29 16:17] LABS: Albumin 3.6 g/dL (3.4-5.0); Bilirubin Direct 0.3 mg/dL (0-0.2); Bilirubin Total 0.5 mg/dL (0.2-1.0); Potassium 4.5 mmol/L (3.5-5.1); Protein, Total 7.7 g/dL (6.4-8.2); Troponin High Sensitivity 6.4 pg/mL (<58.9)
[2022-11-29] MEDS ORDERED: ACETAMINOPHEN 500 MG TAB ONE (16:23)
[2022-11-29 16:54] LABS: SARS-COV-2 RT PCR NEGATIVE (NEGATIVE)
--- NOTE | 2022-11-29 17:16 | EDPHYS ---
Physician Documentation [facility] Name: Cadence Bailey Age: 62 yrs Sex: Female : 1960 Arrival Date: 11/29/2022 Time: 13:09 Bed 16 Private MD: ED Physician Casey Damon HPI: 11/29 15:48 This 62 yrs old Black Female presents to ER via EMS with complaints of Shortness Of sb4 Breath. 15:49 Onset: The symptoms/episode began/occurred 4 day(s) ago. Duration: The symptoms are sb4 continuous, and are steadily getting worse. Associated signs and symptoms: Pertinent positives: non-productive cough. Patient with asthma and history of breast cancer comes in via EMS with complaints of shortness of breath and cough. She states that is has been progressively worsening over the past 4 days. States she has been around her brother who has been sneezing a lot. States albuterol inhaler is not helping.. Historical: - Allergies: 14:08 Iodine; ap3 - PMHx: 14:08 Asthma; Cancer; Hepatitis; ap3 - Immunization history:: Client reports having NOT received the Covid vaccine. Flu vaccine is not up to date. - Social history:: Smoking status: Patient reports the use of cigarette tobacco products, smokes one-half pack cigarettes per day, Patient uses street drugs, marijuana. ROS: 15:49 Constitutional: Positive for fever. sb4 15:51 Eyes: Negative for injury, pain, redness, and discharge, ENT: Negative for injury, sb4 pain, and discharge, Cardiovascular: Negative for chest pain, palpitations, and edema, MS/Extremity: Negative for injury and deformity, Skin: Negative for injury, rash, and discoloration. 15:51 Respiratory: Positive for cough, with no reported sputum, dyspnea on exertion, shortness of breath, at rest. 15:51 Abdomen/GI: Positive for diarrhea, constipation. Exam: 15:51 Head/Face: Normocephalic, atraumatic. Eyes: Extra-ocular motions intact. Periorbital sb4 areas with no swelling, redness, or edema. Cardiovascular: Regular rate and rhythm with a normal S1 and S2. Respiratory: Lungs have equal breath sounds bilaterally, clear to auscultation and percussion. No rales, rhonchi or wheezes noted. No increased work of breathing, no retractions or nasal flaring. Abdomen/GI: Soft, non-tender, no distension. Skin: Warm, dry with normal turgor. Normal color with no rashes, no lesions, and no evidence of cellulitis. MS/ Extremity: Pulses equal, no cyanosis. Neurovascular intact. Full, normal range of motion. 15:51 Constitutional: The patient appears alert, awake, uncomfortable. 15:51 Constitutional: The patient appears uncomfortable. 15:51 Constitutional: The patient appears tearful 16:25 ECG was reviewed by the Attending Physician. sb4 Vital Signs: 14:07 BP 109 / 63; Pulse 51; Resp 19; Temp 100.1; Pulse Ox 97% ; Weight 70.76 kg; Height 5 ap3 ft. 7 in. (170.18 cm); 16:15 BP 125 / 68; Pulse 66; Resp 24; Pulse Ox 96% on R/A; db 16:45 BP 119 / 51; Pulse 53; Resp 18; Pulse Ox 99% on R/A; db 17:45 BP 121 / 55; Pulse 58; Resp 20; Temp 99.1(O); Pulse Ox 100% ; db 14:07 Body Mass Index 24.43 (70.76 kg, 170.18 cm) ap3 MDM: 14:13 Patient medically screened. sb4 15:55 Differential diagnosis: asthma, Bronchitis Chronic Obstructive Pulmonary Disease sb4 pneumonia, Pulmonary Embolism. 17:11 Data reviewed: vital signs, nurses notes, lab test result(s), EKG, radiologic studies, sb4 plain films, I have discussed the patient's presentation/case with the attending Emergency Department Physician; and as a result, I will discharge patient. 11/29 14:14 Order name: BMP sb4 11/29 14:14 Order name: Blood Culture Adult (2) sb4 11/29 14:14 Order name: CBC with Diff 4 11/29 14:14 Order name: CPK sb4 11/29 14:14 Order name: D-Dimer 4 11/29 14:14 Order name: Lipase sb4 11/29 14:14 Order name: Magnesium sb4 11/29 14:14 Order name: NT PRO-BNP sb4 11/29 14:14 Order name: PT-INR sb4 02/15 14:14 Order name: Ptt, Activated sb4 11/29 14:14 Order name: Troponin HS sb4 11/29 14:14 Order name: COVID-19/FLU A+B sb4 11/29 16:06 Order name: Protime (+INR); Complete Time: 16:07 EDMS 15 14:14 Order name: XRAY CXR (1 view) sb4 11/29 14:14 Order name: EKG; Complete Time: 14:16 sb4 11/29 14:14 Order name: Cardiac monitoring; Complete Time: 16:23 sb4 11/29 14:14 Order name: EKG - Nurse/Tech; Complete Time: 15:57 sb4 11/29 15:55 Order name: RAD; Complete Time: 15:59 EDMS 11/29 16:06 Order name: PTT, Activated Partial Thromb; Complete Time: 16:07 EDMS 15 16:06 Order name: D-Dimer; Complete Time: 16:07 EDMS 15 16:18 Order name: Basic Metabolic Panel; Complete Time: 16:22 EDMS 15 16:18 Order name: Liver (Hepatic) Function; Complete Time: 16:22 EDMS 15 16:18 Order name: Creatine Phosphokinase; Complete Time: 16:22 EDMS 15 16:18 Order name: Troponin High Sensitivity; Complete Time: 16:22 EDMS 15 16:18 Order name: NT PRO-BNP; Complete Time: 16:22 EDMS 15 16:18 Order name: Magnesium; Complete Time: 16:22 EDMS 15 16:18 Order name: Lipase; Complete Time: 16:22 EDMS 15 16:54 Order name: COVID-19/FLU A+B; Complete Time: 16:55 EDMS 11/29 14:14 Order name: IV Saline Lock; Complete Time: 15:55 sb4 11/29 14:14 Order name: Labs collected and sent; Complete Time: 15:55 sb4 11/29 14:14 Order name: O2 Per Protocol; Complete Time: 16:23 sb4 11/29 14:14 Order name: O2 Sat Monitoring; Complete Time: 16:23 sb4 EC:25 Rate is 59 beats/min. Rhythm is regular, Sinus bradycardia. QRS [place] is Normal. [place] sb4 interval is normal. QRS interval is normal. QT interval is normal. No Q waves. T waves are Normal. No ST changes noted. Administered Medications: 16:18 Drug: Tylenol 1000 mg Route: PO; db 17:02 Follow up: Response: No adverse reaction db Disposition Summary: 11/29/22 17:15 Discharge Ordered Location: Home sb4 Problem: an ongoing problem sb4 Symptoms: are unchanged sb4 Condition: Stable sb4 Diagnosis - Unspecified bacterial pneumonia sb4 Followup: sb4 - With: Matt Becker MD - When: 1 week - Reason: Recheck today's complaints, Continuance of care, Re-evaluation by your physician Discharge Instructions: - Discharge Summary Sheet sb4 - Community-Acquired Pneumonia, Adult sb4 Forms: - Medication Reconciliation Form sb4 - Thank You Letter sb4 - Antibiotic Education sb4 - Prescription Opioid Use sb4 Prescriptions: - Augmentin 875-125 mg Oral Tablet - take 1 tablet by ORAL route every 12 hours for 10 days; 20 tablet; Refills: 0, sb4 Product Selection Permitted - Zithromax 500 mg Oral Tablet - take 1 tablet by ORAL route once daily for 5 days; 5 tablet; Refills: 0, sb4 Product Selection Permitted Signatures: Dispatcher [employer] Allyson Davila RN RN ap3 Eun Bourne RN RN Dominique Massey PA-C PAAna sb4 Corrections: (The following items were deleted from the chart) 15:55 15:51 Psych: sb4 sb4 15:56 14:16 HEPATIC FUNCTION+[id number].LAB.BRZ ordered. EDMS EDMS
--- NOTE | 2022-11-29 17:16 | ER ---
Nurse's Notes [facility] Name: Cadence Bailey Age: 62 yrs Sex: Female : 1960 Arrival Date: 11/29/2022 Time: 13:09 Bed 16 Private MD: Diagnosis: Unspecified bacterial pneumonia Presentation: 11/29 14:07 Chief complaint: Patient states: she has had a dry cough, and was constipated and now ap3 had diarrhea. patient states she's had these symptoms for approx 4 days. Coronavirus screen: Client presents with at least one sign or symptom that may indicate coronavirus-19. Ebola Screen: No symptoms or risks identified at this time. Initial Sepsis Screen: Does the patient meet any 2 criteria? Temp <36.0*C (96.8*F)) or > 38.3*C (100.9*F). Does the patient have a suspected source of infection? No. Patient's initial sepsis screen is negative. Risk Assessment: Do you want to hurt yourself or someone else? Patient reports no desire to harm self or others. Onset of symptoms was November 25, 2022. 14:07 Method Of Arrival: EMS: [facility] ap3 14:07 Acuity: HALLE 3 ap3 Triage Assessment: 14:09 General: Appears in no apparent distress. Behavior is cooperative. Pain: Denies pain. ap3 Neuro: Level of Consciousness is awake, alert, obeys commands, Oriented to person, place, time, situation. Cardiovascular: Patient's skin is warm and dry. Respiratory: Reports shortness of breath cough that is dry, Airway is patent Respiratory effort is even, unlabored, Respiratory pattern is regular, symmetrical, Onset: The symptoms/episode began/occurred gradually, the patient has mild shortness of breath. GI: Reports constipation, diarrhea. Historical: - Allergies: 14:08 Iodine; ap3 - PMHx: 14:08 Asthma; Cancer; Hepatitis; ap3 - Immunization history:: Client reports having NOT received the Covid vaccine. Flu vaccine is not up to date. - Social history:: Smoking status: Patient reports the use of cigarette tobacco products, smokes one-half pack cigarettes per day, Patient uses street drugs, marijuana. Screenin:10 Abuse screen: Denies threats or abuse. Nutritional screening: No deficits noted. ap3 Tuberculosis screening: No symptoms or risk factors identified. 17:56 [facility] ED Fall Risk Assessment (Adult) History of falling in the last 3 months, db including since admission No falls in past 3 months (0 pts) Confusion or Disorientation No (0 pts) Intoxicated or Sedated No (0 pts) Impaired Gait No (0 pts) Mobility Assist Device Used No (0 pt) Altered Elimination No (0 pt) Score/Fall Risk Level 0 - 2 = Low Risk Oriented to surroundings, Maintained a safe environment, Educated pt \T\ family on fall prevention, incl call for assistance when getting out of bed. Assessment: 16:23 Reassessment: Patient appears in no apparent distress at this time. Patient and/or db family updated on plan of care and expected duration. Pain level reassessed. states has cold symptoms x 4 days with cough. General: Appears in no apparent distress. comfortable, Behavior is calm, appropriate for age. Neuro: Level of Consciousness is awake, alert, obeys commands, Oriented to person, place, time, situation. Cardiovascular: No deficits noted. Rhythm is regular. Respiratory: Airway is patent Respiratory effort is even, unlabored, Respiratory pattern is regular, symmetrical, Breath sounds are coarse. 17:45 Reassessment: Patient appears in no apparent distress at this time. Patient and/or db family updated on plan of care and expected duration. Pain level reassessed. Patient is alert, oriented x 3, equal unlabored respirations, skin warm/dry/pink. General: Appears in no apparent distress. comfortable, Behavior is calm, cooperative. Vital Signs: 14:07 BP 109 / 63; Pulse 51; Resp 19; Temp 100.1; Pulse Ox 97% ; Weight 70.76 kg; Height 5 ap3 ft. 7 in. (170.18 cm); 16:15 BP 125 / 68; Pulse 66; Resp 24; Pulse Ox 96% on R/A; db 16:45 BP 119 / 51; Pulse 53; Resp 18; Pulse Ox 99% on R/A; db 17:45 BP 121 / 55; Pulse 58; Resp 20; Temp 99.1(O); Pulse Ox 100% ; db 14:07 Body Mass Index 24.43 (70.76 kg, 170.18 cm) ap3 ED Course: 13:09 Patient arrived in ED. rg4 13:43 Dominique River [facility]. sb4 13:43 Casey Damon MD is Attending Physician. sb4 14:08 Triage completed. ap3 14:10 Arm band placed on right wrist. ap3 15:55 Troponin HS Sent. bc6 15:55 Ptt, Activated Sent. bc6 15:55 PT-INR Sent. bc6 15:55 NT PRO-BNP Sent. bc6 15:55 Magnesium Sent. bc6 15:55 Lipase Sent. bc6 15:56 D-Dimer Sent. bc6 15:56 CPK Sent. bc6 15:56 CBC with Diff Sent. bc6 15:56 BMP Sent. bc6 15:56 Blood Culture Adult (2) Sent. bc6 15:57 Inserted saline lock: 20 gauge in right antecubital area, using aseptic technique. bc6 15:57 COVID-19/FLU A+B Sent. bc6 16:10 Eun Bourne, RN is Primary Nurse. db 17:01 Patient has correct armband on for positive identification. Bed in low position. Call db light in reach. Side rails up X 1. Client placed on continuous cardiac and pulse oximetry monitoring. NIBP monitoring applied. 17:12 Matt Becker MD is Referral Physician. sb4 17:45 No provider procedures requiring assistance completed. IV discontinued, intact, db bleeding controlled, No redness/swelling at site. Administered Medications: 16:18 Drug: Tylenol 1000 mg Route: PO; db 17:02 Follow up: Response: No adverse reaction db Medication: 14:10 VIS not applicable for this client. ap3 Outcome: 17:15 Discharge ordered by . sb4 17:45 Discharged to home ambulatory. db 17:45 Condition: stable 17:45 Discharge instructions given to patient, Instructed on discharge instructions, follow up and referral plans. Prescriptions given X 2. 18:15 Patient left the ED. Signatures: Courtney Bravo RN RN Amada Lewis rg4 Allyson Burch RN RN ap3 Eun Bourne, RN RN Dominique Massey PA-C PA-C sb[address] bc6
[2022-11-29 18:28] VITALS: BP 121/55; TEMP 99.1; O2SAT 100
--- NOTE | 2022-11-30 11:53 | EKG ---
Test Date: 2022-11-29 Test Time: 16:13:33 Vitamin Manager: JORDAN MEASUREMENT RESULTS: Intervals: Rate: 59 TX: 162 QRSD: 76 QT: 382 QTc: 378 [place]: P: 77 TX: 162 QRS: 59 T: 54 INTERPRETIVE STATEMENTS: Sinus bradycardia with sinus arrhythmia Otherwise normal ECG Compared to ECG 12/22/2019 13:22:38 T-wave abnormality no longer present Possible ischemia no longer present Electronically Signed On 11-30-22 11:51:27 [employer] PRESS OPERATOR by Timmy Hathaway
== END 2022-11-29 18:15 | disposition home or self-care (01) ==
LOC: ER 13:06
DX: J15.9 Unspecified bacterial pneumonia (principal); J45.909 Unspecified asthma, uncomplicated; F17.210 Nicotine dependence, cigarettes, uncomplicated; Z20.822 Contact with and (suspected) exposure to COVID-19; Z91.048 Other nonmedicinal substance allergy status
CPT/HCPCS: 87040 ×2; 80048; 36415; 83735; 82550; 85610; 85379; 80076; 85730; 84484; 83690; 83880; 0240U; 71045; 93005